=== PATIENT | male | born 1930 | race Caucasian/White ===

== ENCOUNTER → 2016-10-13 | Outpatient (CLI) | payer OTHER, MEDICARE ==
--- NOTE | 2016-10-13 08:19 | MR ---
MRI of the Lumbar Spine (Without Contrast) at 0718 hours Clinical Indications: Chronic low back pain, G89.29, M54.42, S32.010D. Lumbar compression fracture. COMPARISON: MRI August 2008. Technique: Sagittal and axial T1 and T2 and sagittal STIR MR sequences of the lumbar spine without co ntrast. Axial imaging from T12-S1. Findings: Moderate anterior wedge compression fracture of the L1 vertebral body with 25% loss of hei ght anteriorly appears unchanged since August 2008 without associated bone marrow edema or patholog ic fracture. No acute compression fractures. Conus medullaris appears normal and ends at L1. Sagittal images at T10-T11 and T11-T12 demonstrate moderate degenerative disk disease with disk bulge s and facet arthropathy resulting in mild central canal stenosis and mild to moderate bilateral neura l foraminal stenosis. T12-L1: Mild degenerative disk disease, mild disk bulge and mild bilateral facet arthropathy resultin g in mild central canal stenosis without neural foraminal stenosis. L1-L2: Moderate degenerative disk disease, ventral osteophytes, Schmorl's node inferior endplate of L 1, without central canal or neural foraminal stenosis. L2-L3: Severe degenerative disk disease with severe loss of disk height, degenerative retrolisthesis 6 mm, circumferential osteophytes, and moderate bilateral facet arthropathy resulting in moderate connor tral canal stenosis with partial effacement of the subarachnoid space, and moderate to severe bilater al neural foraminal stenosis. L3-L4: Severe degenerative disk disease, severe loss of disk height, degenerative retrolisthesis 6 mm with circumferential osteophytes and disk bulge and severe bilateral facet arthropathy resulting in moderate central canal stenosis and moderate to severe bilateral neural foraminal stenosis. L4-L5: Severe degenerative disk disease, severe loss of disk height, degenerative retrolisthesis 4 mm with circumferential osteophytes and severe bilateral facet arthropathy resulting in moderate centra l canal stenosis and moderate to severe bilateral neural foraminal stenosis, left worse than right. L5-S1: Moderate degenerative disk disease, moderate loss of disk height, circumferential disc bulge a nd osteophytes and moderate bilateral facet arthropathy resulting in mild central canal stenosis and moderate to severe bilateral neural foraminal stenosis, left worse than right. Moderate levoscoliosis. Multiple bilateral renal parapelvic cysts partially visualized. Impression: 1. Moderate levoscoliosis with multilevel moderate to severe degenerative disk disease worst from L2- L3 through L4-L5 and multilevel moderate to severe bilateral facet arthropathy. 2. L2-L3, L3-L4 and L4-L5 severe degenerative disk disease with degenerative retrolisthesis and bilat eral facet arthropathy resulting in moderate central canal stenosis and moderate to severe bilateral neural foraminal stenosis. 3. L5-S1: Moderate to severe bilateral neural foraminal stenosis and mild central canal stenosis seco ndary to moderate degenerative disk disease and bilateral facet arthropathy. 4. Please see above findings at specific disk levels.
== END ==
LOC: FIMAGING 06:57
PROVIDERS: ATTEND Internal Medicine
DX: M41.86 Other forms of scoliosis, lumbar region (principal); M51.36 Other intervertebral disc degeneration, lumbar region; M43.16 Spondylolisthesis, lumbar region; M12.88 Other specific arthropathies, not elsewhere classified, other specified site; M51.26 Other intervertebral disc displacement, lumbar region; M48.06 Spinal stenosis, lumbar region; M99.73 Connective tissue and disc stenosis of intervertebral foramina of lumbar region; S32.010D Wedge compression fracture of first lumbar vertebra, subsequent encounter for fracture with routine healing

== ENCOUNTER 2017-05-31 12:05 | Emergency (ER) | payer OTHER, MEDICARE ==
[2017-05-31] MEDS ORDERED: LET GEL TOPICAL 1 EA SYR TP ONE ×2 (13:41→13:42)
--- NOTE | 2017-05-31 13:44 | EDPHY ---
H & P Time Seen by Provider: 05/31/17 13:20 HPI/ROS: CHIEF COMPLAINT: Right forearm skin tear HISTORY OF PRESENT ILLNESS: 87-year-old male no history of anticoagulant, up-to -date tetanus, complaining of acute right forearm skin avulsion. Describes being in his garden, sustained a mechanical trip and fall and impacted his dorsal forearm against a rock wall. No underlying osseous discomfort. No head injury. This was a purely mechanical non syncopal episode. No paresthesia. No proximal distal pain or injury. PRIMARY CARE PROVIDER: Dr. Dustin Hodges REVIEW OF SYSTEMS: A ten point review of systems was performed and is negative with the exception of the items mentioned in the HPI PHYSICAL EXAM (Prior to examination, patient consented to physical exam, hands were washed and my usual and customary physical exam procedures followed) 1) GENERAL: Well-developed, well-nourished, alert and oriented. Appears to be in no acute distress. 2) HEAD: Normocephalic 3) HEENT: sclera anicteric 4) LUNGS: Breathing comfortably. 5) SKIN: right dorsal forearm 8 cm superficial skin avulsion. The flap of tissue is not thick enough to hold sutures. No signs of infection. 6) MUSCULOSKELETAL: soft compartments. No underlying osseous discomfort. Full pain-free range of motion. 7) NEUROLOGIC: Radial ulnar median nerve function intact distally Smoking Status: Former smoker Constitutional: Initial Vital Signs Temperature (C) 36.5 C 05/31/17 12:15 Heart Rate 66 05/31/17 12:15 Respiratory Rate 16 05/31/17 12:15 Blood Pressure 189/76 H 05/31/17 12:15 O2 Sat (%) 96 05/31/17 12:15 O2 Delivery Mode Room Air Allergies/Adverse Reactions: No Known Allergies Allergy (Verified 05/31/17 12:18) Home Medications: Medication Instructions Recorded Lisinopril [Zestril 5 mg] 0 mg PO DAILY 12/10/11 oxyCODONE/APAP 5/325 [Percocet 1 tab PO . Q 4-6 HRS PRN #20 tab 12/10/11 5/325] Lipitor 10 mg (RX) 09/15/13 B P Med 05/31/17 Gabapentin [Neurontin 300 MG (*)] 300 mg PO HS 05/31/17 traMADol [Ultram 50 mg (*)] 50 mg PO Q4 05/31/17 MDM/Departure - [facility] ED Course/Re-evaluation: The patient skin avulsion is too thin told sutures. The patient's wound was anesthetized with topical anesthetic, copiously irrigated by ER staff and dressed with antibiotic ointment and Steri-Strips. Recommend follow up with his primary care provider in 2-3 days. No evidence of compartment syndrome. No underlying osseous discomfort. - Depart Disposition: Home, Routine, Self-Care Clinical Impression: Skin tear of right forearm without complication Qualifiers: Encounter type: initial encounter Qualified Code(s): S51.811A - Laceration without foreign body of right forearm, initial encounter Condition: Good Instructions: Skin Tear (ED) Additional Instructions: Return to the ER if you develop redness, swelling, discharge, warmth to the wound, red streaks going up your arm or any other symptoms that concern you. Referrals: Dustin Hodges MD [Primary Care Provider] - 2-3 days, call for appt.
[2017-05-31 14:43] VITALS: BP 180/73; PULSE 57; RESP 18; TEMP 98.1; O2SAT 94
[2017-05-31] MEDS ORDERED: BACITRACIN OINTMENT 1 PACKET TP ONE (14:49)
== END 2017-05-31 14:51 | disposition home or self-care (01) ==
DX: S51.811A Laceration without foreign body of right forearm, initial encounter (principal); Z87.891 Personal history of nicotine dependence; W01.198A Fall on same level from slipping, tripping and stumbling with subsequent striking against other object, initial encounter